=== PATIENT | female | born 1995 | race Caucasian/White ===

== ENCOUNTER 2016-11-21 02:50 | Inpatient (IN) | payer OTHER ==
[2016-11-21] MEDS: ELECTROLYTE-148 SOLN 1,000 ML IV SCH ×2 (08:45→10:15)
--- NOTE | 2016-11-21 09:16 | HP ---
Admitting History and Physical - Admission Chief Complaint: labor pains History of Present Illness: 21 y/o at term comes with labor pains. She was here in the night and sent home. She returns with contractions. and now 4-5 cm. History Source: Patient Limitations to Obtaining History: No Limitations - Past Medical History PRISM INSPECTOR: No: Alzheimer's, CVA, Dementia, Migraine, Multiple Sclerosis, Peripheral Neuropathy, Parkinson's, Seizure, Syncope, TIA, Vertigo, Other Cardiovascular: No: AFIB, Aneurysm, Aortic Insufficiency, Aortic Stenosis, CAD, CHF, Deep Vein Thrombosis, HTN, Hyperlipdemia, [place], Mitral Insufficiency, Mitral Stenosis, Murmur, Pulmonary Hypertension, Other Pulmonary: No: Asthma, Bronchitis, Cancer, COPD, O2 Dependent, Pneumonia, Previously Intubated, Pulmonary Embolus, Pulmonary Fibrosis, Sleep Apnea, Other Gastrointestinal: No: Ascites, Cancer, Constipation, Crohn's Disease, Diverticulitis, Diverticulosis, Esophageal Varices, Gastritis, GERD, GI Bleed, Hemorrhoids, Hiatal Hernia, Inflamatory Bowel Disease, Irritable Bowel Disease, Pancreatitis, Peptic Ulcer Disease, Ulcerative Colitis, Other Hepatobiliary: No: Cirrhosis, Cholelithiasis, Cholecystitis, Choledocholithiasis , Hepatitis A, Hepatitis B, Hepatitis C, Other Renal/: No: Renal Failure, Renal Inusuff, BPH, Cancer, Hematuria, Hemodialysis , Neurogenic Bladder, Renal Calculi, UTI, Other ...LMP: 11/18/15 ...: 3 ...Para: 1 Heme/Onc: Yes: Anemia. No: B12 Deficiency, Bleeding Disorder, Cancer, Current Chemotherapy, Current Radiation Therapy, Hemochromatosis, Hypercoaguable State, Myeloproliferative Synd, Sickle Cell Disease, Sickle Cell Trait, Thrombocytopenia, Other Infectious Disease: No: AIDS, C-Diff, Herpes Zoster, HIV, MRSA, STD's, Tuberculosis, VREF, Other Psych: No: Addictions, Anxiety, Bipolar, Depression, Panic, Psychosis, Schizophrenia, Other Musculoskeletal: No: Bursitis, Chronic low back pain, Hemiparesis, Hemiplegia, Osteoarthritis, Paraplegia, Other Rheumatology: No: Fibromyalgia, Gout, Lupus, Rheumatoid Arthritis, Sarcoidosis, Vasculitis, Other ENT: No: Allergic Rhinitis, Sinusitis, Other Endocrine: No: Rapides's Disease, [place]'s Disease, Diabetes Insipidus, Diabetes Mellitus, Hyperparathyroidism, Hyperthyroidism, Hypothyroidism, Osteopenia, SIADH, Other - Past Surgical History Past Surgical History: No: None, AAA Repair, AICD, Amputation, Appendectomy, Arthrosocopy, AV Fistula/Graft, Bariatric Surgery, Breast Biopsy, Bypass, CABG, Carotid Endarterectomy, Cataract Removal, Cholecystectomy, Colectomy, Colonoscopy, Colostomy, Craniotomy, , Cystectomy, Hernia Repair, Hysterectomy, Ileal Conduit, Ileosotomy, Joint Replacement, Kidney Transplant, Laminectomy, Liver Transplant, Mastectomy, Nephrectomy, Oopherectomy, Orchiectomy, Permanent Pacemaker, Prostatectomy, Splenectomy, Stent, Thoracotomy , TURP, Tonsillectomy, Tubal Ligation, Upper Endoscopy, Valve Replacement, Vasectomy, Vein Stripping/Ligation - Advance Directives Advance Directives: No: Living Will, Health Care Proxy, DNR, Organ Donor, Tissue Donor, MOLST - Smoking History Smoking history: Never smoked Have you smoked in the past 12 months: No - Alcohol/Substance Use Hx Alcohol Use: No History of Substance Use: reports: None. denies: Cocaine, Heroin, Marijuana, Prescription, Tranquilizers - Social History Usual Living Arrangement: No: Alone, With Spouse, With Parent, With Significant Other, With Child, Assisted Living, Fpc, Other History of Recent Travel: No Home Medications - Allergies Allergies/Adverse Reactions: Allergies Allergy/AdvReac Type Severity Reaction Status Date / Time No Known Allergies Allergy Verified 11/21/16 03:27 - Home Medications Home Medications: Ambulatory Orders Vitamins (Sjr) - 1 tab PO DAILY 05/16/14 Review of Systems - Review of Systems Constitutional: reports: No Symptoms Eyes: reports: No Symptoms HENT: reports: No Symptoms Neck: reports: No Symptoms Cardiovascular: reports: No Symptoms Respiratory: reports: No Symptoms Gastrointestinal: reports: No Symptoms Genitourinary: reports: No Symptoms Breasts: reports: No Symptoms Reported Musculoskeletal: reports: No Symptoms Integumentary: reports: No Symptoms Neurological: reports: No Symptoms Endocrine: reports: No Symptoms Hematology/Lymphatic: reports: No Symptoms Psychiatric: reports: No Symptoms Physical Examination Vital Signs: Vital Signs Temperature 98.9 F 11/21/16 03:28 Pulse Rate 86 11/21/16 03:28 Respiratory Rate 18 11/21/16 03:28 Blood Pressure 116/73 11/21/16 03:28 O2 Sat by Pulse Oximetry (%) Constitutional: Yes: Well Nourished Eyes: Yes: WNL HENT: Yes: WNL Neck: Yes: WNL Cardiovascular: Yes: WNL Respiratory: Yes: WNL Gastrointestinal: Yes: WNL ...Rectal Exam: Yes: WNL Renal/: Yes: WNL Musculoskeletal: Yes: WNL Extremities: Yes: WNL Neurological: Yes: WNL ...Motor Strength: WNL Assessment/Plan as above: admit labs desires epidural consider pitocin
[2016-11-21 09:29] VITALS: BMI 32.4
[2016-11-21] MEDS ORDERED: OXYTOCIN 15 UNITS/ LR 250 ML 250 ML IVPB SCH (09:30)
[2016-11-21] MEDS ORDERED: DEXTROSE 5%-LACTATED RINGERS 1,000 ML IV SCH (09:30)
[2016-11-21] MEDS: FENTANYL/BUPIVACAINE/NS/PF - PCEA - 50 ML DISP.SYRIN EP SCH ×2 (09:45→14:15)
[2016-11-21 10:20] LABS: BASOPHIL 0.2 % (0-2.0); EOSINOPHIL 0.1 % (0-4.5); MCH 27.5 pg (25.7-33.7); MCHC 32.6 g/dl (32.0-36.0); MEAN CELL VOLUME 84.5 fl (80-96); MEAN PLT VOLUME 9.8 fl (7.5-11.1); NEUTROPHILS 75.8 % (42.8-82.8); PLATELET COUNT 151 K/MM3 (134-434); RDW 16.5 % (11.6-15.6); WHITE BLOOD COUNT 8.7 K/mm3 (4.0-10.0)
[2016-11-21 10:41] LABS: ANION GAP 13 (8-16); CO2 20 mmol/L (21-32); CREATININE 0.6 mg/dL (0.55-1.02); GLUCOSE,RANDOM 77 mg/dL (74-106)
--- NOTE | 2016-11-21 10:45 | PN ---
Progress Note (short form) - Note Progress Note: cat 1 arom clear 5cm/-2/80 on pitocin
[2016-11-21 10:51] LABS: INR 0.94 (0.82-1.09); PROTHROMBIN TIME (PATIENT) 10.6 SEC (9.98-11.88)
[2016-11-21 10:54] LABS: ACTIVATED PTT 26.9 SECONDS (26.9-34.4)
--- NOTE | 2016-11-21 15:03 | PN ---
Progress Note (short form) - Note Progress Note: pt now fully dilated cat one will start to push
[2016-11-21] MEDS: OXYTOCIN 20 UNITS in 0.9% NS 1,000 ML IV SCH (15:35)
[2016-11-21] MEDS ORDERED: BENZOCAINE 20% 57 GM BOTTLE TP PRN (15:37)
[2016-11-21] MEDS ORDERED: WITCH HAZEL 50% (TUCKS) 40 PAD/JAR PAD TP PRN (15:37)
[2016-11-21] MEDS ORDERED: BISACODYL 10 MG SUPP.RECT RC PRN (15:37)
[2016-11-21] MEDS ORDERED: ACETAMINOPHEN 325 MG TABLET (FP) PO PRN (15:37)
[2016-11-21] MEDS ORDERED: METHYLERGONOVINE MALEATE 0.2 MG/1 ML AMP IM PRN (15:37)
[2016-11-21] MEDS ORDERED: IBUPROFEN 600 MG TABLET (FP) PO PRN (15:37)
[2016-11-21] MEDS ORDERED: BENZOCAINE 28 GM HEMORRHOIDAL OINTMENT TP PRN (15:37)
--- NOTE | 2016-11-21 15:39 | PN ---
Delivery - Delivery Type of Anesthesia: Epidural Episiotomy/Laceration: None EBL (cc): 400 Delivery, Single - Feeding Plan Initial Plan: Elected not to breastfeed exclusively throughout hospitalization
[2016-11-22 08:34] LABS: BASOPHIL 0.2 % (0-2.0); EOSINOPHIL 0.4 % (0-4.5); MCH 27.7 pg (25.7-33.7); MCHC 32.4 g/dl (32.0-36.0); MEAN CELL VOLUME 85.4 fl (80-96); MEAN PLT VOLUME 9.5 fl (7.5-11.1); NEUTROPHILS 72.6 % (42.8-82.8); PLATELET COUNT 124 K/MM3 (134-434); RDW 17.1 % (11.6-15.6); WHITE BLOOD COUNT 11.2 K/mm3 (4.0-10.0)
[2016-11-22] MEDS ORDERED: DIPHTH,PERTUSS(ACELL),TET 0.5 ML DISP.SYRIN IM ONE (10:00)
[2016-11-22] MEDS ORDERED: FLU VACC QS2017-18 36MOS UP/PF 60 MCG/0.5 ML SYRINGE IM ONE (10:00)
--- NOTE | 2016-11-22 11:23 | PN ---
Post Progress Note Post Day: 1 Type of Delivery: Vital Signs: Vital Signs Temperature 98.0 F 11/22/16 04:40 Pulse Rate 20 L 11/22/16 04:40 Respiratory Rate 125 H 11/22/16 04:40 Blood Pressure 112/71 11/22/16 00:58 O2 Sat by Pulse Oximetry (%) 100 11/21/16 16:45 Breast Exam: Yes: Soft Uterus: Yes: Fundus Firm Abdomen/GI: Yes: Abdomen soft Lochia: Yes: Rubra Lochia, amount: Small Extremities: Yes: Calves non-tender Perineum: Yes: Intact - Labs Labs: CBC WBC 11.2 K/mm3 (4.0-10.0) H 11/22/16 07:20 RBC 3.88 M/mm3 (3.60-5.2) 11/22/16 07:20 Hgb 10.7 GM/dL (10.7-15.3) 11/22/16 07:20 Hct 33.1 % (32.4-45.2) 11/22/16 07:20 MCV 85.4 fl (80-96) 11/22/16 07:20 MCH 27.7 pg (25.7-33.7) 11/22/16 07:20 MCHC 32.4 g/dl (32.0-36.0) 11/22/16 07:20 RDW 17.1 % (11.6-15.6) H 11/22/16 07:20 Plt Count 124 K/MM3 (134-434) L 11/22/16 07:20 MPV 9.5 fl (7.5-11.1) 11/22/16 07:20 Neutrophils % 72.6 % (42.8-82.8) 11/22/16 07:20 Lymphocytes % 20.0 % (8-40) 11/22/16 07:20 Monocytes % 6.8 % (3.8-10.2) 11/22/16 07:20 Eosinophils % 0.4 % (0-4.5) D 11/22/16 07:20 Basophils % 0.2 % (0-2.0) 11/22/16 07:20 Assessment/Plan doing well no issues will dc tomorrow
[2016-11-22] MEDS: OXYTOCIN 20 UNITS in 0.9% NS 1,000 ML IV SCH (18:20)
[2016-11-22] MEDS ORDERED: SENNOSIDES/DOCUSATE COMBO (SENNA PLUS) TABLET (UD) PO PRN (22:00)
--- NOTE | 2016-11-23 06:22 | DS ---
Physical Exam-LOAN EXAMINER Vital Signs: Vital Signs Temperature 98.1 F 11/22/16 21:35 Pulse Rate 76 11/22/16 21:35 Respiratory Rate 18 11/22/16 21:35 Blood Pressure 112/68 11/22/16 21:35 O2 Sat by Pulse Oximetry (%) 100 11/21/16 16:45 Constitutional: Yes: Well Nourished Eyes: Yes: Conjunctiva Clear HENT: Yes: Atraumatic Neck: Yes: Supple, Trachea Midline Cardiovascular: Yes: Regular Rate and Rhythm Respiratory: Yes: Regular, CTA Bilaterally Gastrointestinal: Yes: Normal Bowel Sounds External Genitalia: Yes: Normal Cervix: Yes: Normal Uterus: Yes: Firm ....Post : Yes: Uterus firm, Moderate lochia serosa Breast(s): Yes: WNL Musculoskeletal: Yes: WNL Extremities: Yes: WNL Neurological: Yes: Alert, Oriented ...Motor Strength: WNL Psychiatric: Yes: Alert, Oriented Labs: CBC, BMP 11/22/16 07:20 11/21/16 09:45 Delivery - Delivery Type of Anesthesia: Epidural Episiotomy/Laceration: 1st degree EBL (cc): 400 Delivery, Single - Stages of Labor Date 1st Stage Initiatied: 11/21/16 Time 1st Stage Initiated: 06:00 Date 2nd Stage Initiated: 11/21/16 Time 2nd Stage Initiated: 15:00 Date of Delivery: 11/21/16 Time of Delivery: 15:25 Time Placenta Delivered: 15:30 - Condition of Invoice Control Clerk/Bakery Assistant Present: No Gender: Male Weight: 7 lb 8 oz Total Hours ROM (Hrs/Mins): 4/50 - 1 Minute Total Score: 8 5 Minutes Total Score: 9 - Feeding Plan Initial Plan: Elected not to breastfeed exclusively throughout hospitalization Discharge Summary Reason For Visit: LABOR Current Active Problems Status post normal vaginal delivery (Acute) Procedures: Principal: Normal spontaneous vaginal delivery Hospital Course: Routine care Condition: Good - Instructions Diet, Activity, Other Instructions: Regular diet No douching, no sexual intercourse x 6 weeks F/U with MD in 6 weeks Referrals: Robin Mccall MD [Staff Physician] - Disposition: HOME - Home Medications Comprehensive Discharge Medication List: Ambulatory Orders Vitamins (Sjr) - 1 tab PO DAILY 05/16/14 Ibuprofen [Motrin -] 600 mg PO TID #21 tablet 11/21/16
[2016-11-23 09:50] VITALS: BP 114/62; PULSE 86; TEMP 98
== END 2016-11-23 12:00 | disposition home or self-care (01) | DRG 560 ==
LOC: JDEL 02:50 → UNDOADMIN 08:30 → JLDR 08:30 → J3W 17:00
PROVIDERS: ADMIT Obstetrics & Gynecology; ATTEND Obstetrics & Gynecology
PROC: 10E0XZZ Delivery of Products of Conception, External Approach (ICD-10-PCS; principal; 2016-11-21)
PROC: 0W8NXZZ Division of Female Perineum, External Approach (ICD-10-PCS; 2016-11-21)
PROC: 0HQ9XZZ Repair Perineum Skin, External Approach (ICD-10-PCS; 2016-11-21)
DX: O70.0 First degree perineal laceration during delivery (principal); Z3A.39 39 weeks gestation of pregnancy; Z37.0 Single live birth
CPT/HCPCS: 36415; 59025; 59409; 80048; 85025; 85610; 85730; 86593; 86850; 86900; 86901; 90686; 90715; G0008

== ENCOUNTER 2019-11-21 08:10 | Inpatient (IN) | payer OTHER ==
[2019-11-21 08:25] VITALS: BMI 27.7
[2019-11-21] MEDS ORDERED: KETOROLAC TROMETHAMINE 30 MG/1 ML VIAL IVPUSH ONE (08:44)
[2019-11-21] MEDS ORDERED: ONDANSETRON 4 MG/2 ML VIAL IVPUSH ONE (08:44)
--- NOTE | 2019-11-21 08:48 | PDOC ---
History of Present Illness - General Chief Complaint: Pain Stated Complaint: RT SIDE ABD PAIN Time Seen by Provider: 11/21/19 08:38 History Source: Patient - History of Present Illness Timing/Duration: reports: intermittent Quality: reports: moderate Past History - Medical History Allergies/Adverse Reactions: Allergies Allergy/AdvReac Type Severity Reaction Status Date / Time No Known Allergies Allergy Verified 11/21/19 08:25 Home Medications: Ambulatory Orders Acetaminophen [Tylenol] 650 mg PO Q6H #30 tablet 11/21/19 Cefpodoxime Proxetil [Vantin -] 200 mg PO Q12H #20 tablet 11/21/19 Asthma: No Cancer: No Cardiac Disorders: No COPD: No Diabetes: No HTN: No Seizures: No Thyroid Disease: No - Surgical History Appendectomy: Yes - Reproductive History Is Patient Now?: Yes (19.5) - Immunization History Immunization Up to Date: Yes - Psycho-Social/Smoking History Smoking History: Never smoked Have you smoked in the past 12 months: No Information on smoking cessation initiated: No - Substance Abuse Hx (Audit-C & DAST Scrn) How often the patient has a drink containing alcohol: Never Score: In Men: 4 or > Positive; In Women: 3 or > Positive: 0 Screen Result (Pos requires Nsg. Audit-10AR): Negative In the last yr the pt used illegal drug/Rx for NonMed reason: No Score: Yes response is considered Positive: 0 Screen Result (Positive result requires Nsg. DAST-10): Negative Review of Systems - Review of Systems Constitutional: No: Chills, Fever ABD/GI: Yes: Nausea, Vomiting, Abdominal cramping. No: Blood Streaked Bowels, Constipated, Diarrhea, Rectal Bleeding, Tarry Stools : Yes: Flank Pain. No: Burning, Dysuria, Discharge, Hematuria *Physical Exam - Vital Signs Last Vital Signs Temp Pulse Resp BP Pulse Ox 99.0 F 86 17 92/48 L 100 11/21/19 08:22 11/21/19 08:22 11/21/19 08:22 11/21/19 08:22 11/21/19 08:22 - Physical Exam General Appearance: Yes: Appropriately Dressed, Mild Distress HEENT: positive: Normal Voice Neck: positive: Supple Respiratory/Chest: negative: Respiratory Distress Gastrointestinal/Abdominal: positive: Normal Bowel Sounds, Tender (sig ttp to RUQ, neg murpheys, no ttp to lower abd), Soft. negative: Distended, Guarding, Rebound Musculoskeletal: positive: CVA Tenderness (R) Integumentary: positive: Dry, Warm Neurologic: positive: Fully Oriented, Alert, Normal Mood/Affect ED Treatment Course - LABORATORY CBC & Chemistry Diagram: 11/21/19 09:15 11/21/19 09:15 - RADIOLOGY Radiology Studies Ordered: Category Date Time Status ABDOMEN US -LIMITED [US] Stat Ultrasound 11/21/19 08:44 Ordered Medical Decision Making - Medical Decision Making 11/21/19 08:44 24-year-old female, , ~19 weeks , w/ no issues w/ preg so far, here w/ RUQ/flank pain for 1 week, sharp and crampy in nature, intermittent and last for hours each time. + nausea and vomiting intermittently. No lower abd pain, vag bleed, dysuria, hematuria, fever, chills or change in bowel movements. No known history of gallstones or kidney stones. see exam Upper abd pain in 2nd trimester preg No issues w/ preg so far Possible gastritis/GERD vs biliary vs uti/pyelo, less likely appy -pain control -labs -US 11/21/19 09:42 11/21/19 11:11 Of note, pt did not mention to me that she was prior to administration of toradol 11/21/19 11:52 Over 1999 bacteria on UA, ucx sent. No leukocytosis. Ultrasound read as "somewhat thickened" gallbladder wall with no stones, ductal dilatation or evidence of acute juve per radiology. Given presentation, will treat for possible pyelo. 1 dose ceftriaxone given in ED. Will discuss disposition 11/21/19 14:[address] Santana and patient admitted to MD's service for pyelo-. Per MD, patient is actually over 20 weeks Discharge - Discharge Information Problems reviewed: Yes Clinical Impression/Diagnosis: Pyelonephritis affecting Qualifiers: Trimester: second trimester Qualified Code(s): O23.02 - Infections of kidney in , second trimester Condition: Improved - Admission Yes - Additional Discharge Information Prescriptions: Acetaminophen [Tylenol] 650 mg PO Q6H #30 tablet Cefpodoxime Proxetil [Vantin -] 200 mg PO Q12H #20 tablet - Follow up/Referral - Patient Discharge Instructions Additional Instructions: Your urine showed many bacteria and you were treated with Macrobid. Take as directed Your ultrasound showed mildly thickened gallbladder wall but no evidence of acute gallbladder infection. Take Tylenol as needed and continue follow-up with your OB - Post Discharge Activity
[2019-11-21] MEDS ORDERED: KETOROLAC TROMETHAMINE 30 MG/1 ML VIAL ONE (09:17)
--- OUTSIDE RECORDS SUMMARY | 2019-11-21 09:39 | XMS ---
:1995 Author Organization [facility] Support Name Relationship Address Phone UE Unavailable Unavailable Unavailable JUDE QUIGLEY PARTNER [address] [place] [address] Re-disclosure Warning The records that you are about to access may contain information from federally- assisted alcohol or drug abuse programs. If such information is present, then the following federally mandated warning applies: This information has been disclosed to you from records protected by federal confidentiality rules (42 CFR part 2). The federal rules prohibit you from making any further disclosure of this information unless further disclosure is expressly permitted by the written consent of the person to whom it pertains or as otherwise permitted by 42 CFR part 2. A general authorization for the release of medical or other information is NOT sufficient for this purpose. The Federal rules restrict any use of the information to criminally investigate or prosecute any alcohol or drug abuse patient.The records that you are about to access may contain highly sensitive health information, the redisclosure of which is protected by Article 27-F of the [facility] Public Health law. If you continue you may haveaccess to information: Regarding HIV / AIDS; Provided by facilities licensed or operated by the [facility] Office of Mental Health; or Provided by the [facility] Office for People With Developmental Disabilities. If such information is present, then the following [facility] mandated warning applies: This information has been disclosed to you from confidential records which are protected by state law. State law prohibits you from making any further disclosure of this information without the specific written consent of the person to whom it pertains, or as otherwise permitted by law. Any unauthorized further disclosure in violation of state law may result in a fine or mcc sentence or both. A general authorization for the release of medical or other information is NOT sufficient authorization for further disclosure. Insurance Providers Payer name Policy type Policy ID Covered Covered constitution party's Policy P kushal / Coverage constitution party ID relationship to Lindsay Inf ormation type lindsay [place] [id number] O
[2019-11-21 09:45] LABS: BASO % 0.6 % (0-2.0); EOS % 0.6 % (0-4.5); HEMOGLOBIN 11.9 GM/dL (10.7-15.3); LYMPH % 16.2 % (8-40); MCH 28.8 pg (25.7-33.7); MEAN CELL VOLUME 84.7 fl (80-96); MEAN PLT VOLUME 8.5 fl (7.5-11.1); MONO % 5.4 % (3.8-10.2); NEUT % 77.2 % (42.8-82.8); PLATELET COUNT 268 K/MM3 (134-434); RBC 4.13 M/mm3 (3.60-5.2); RDW 13.7 % (11.6-15.6); WHITE BLOOD COUNT 9.3 K/mm3 (4.0-10.0)
[2019-11-21 10:17] LABS: ALBUMIN 2.9 g/dl (3.4-5.0); BILIRUBIN,TOTAL 0.2 mg/dL (0.2-1); BLOOD UREA NITROGEN 7.4 mg/dL (7-18); CALCIUM 8.6 mg/dL (8.5-10.1); CREATININE 0.5 mg/dL (0.55-1.3); TOT PROT 6.7 g/dl (6.4-8.2)
[2019-11-21 11:19] LABS: HCG,QUALITATIVE URINE Positive
[2019-11-21 11:22] LABS: EPI CELLS >36 /uL (0-25.1); HYALINE CASTS 25 /uL (0-3.1); URINE APPEARANCE CLOUDY; URINE BACTERIA 2527 /uL (0-1359); URINE BILIRUBIN 1+ (NEGATIVE); URINE COLOR DK YELLOW; URINE GLUCOSE (UA) NEGATIVE (NEGATIVE); URINE KETONE TRACE (NEGATIVE); URINE LEUK ESTERASE TRACE (NEGATIVE); URINE NITRITE NEGATIVE (NEGATIVE); URINE PROTEIN 2+ (NEGATIVE); URINE WBC 60 /uL (0-25.8)
[2019-11-21 11:43] LABS: URINE RBC 23.1 /uL (0-23.9)
[2019-11-21] MEDS ORDERED: SODIUM CHLORIDE 1,000 ML IV STA (12:00)
[2019-11-21] MEDS ORDERED: CEFTRIAXONE 1 GM in DEXTROSE 5%-WATER - 50 ML IVPB ONE (12:00)
[2019-11-21] MEDS ORDERED: CEFTRIAXONE 1 GM/50 ML BAG ONE (12:32)
--- OUTSIDE RECORDS SUMMARY | 2019-11-21 14:12 | XMS ---
:1995 Author Organization [facility] Support Name Relationship Address Phone UE, UNEMPLOYED Unavailable Unavailable Unavailable UE Unavailable Unavailable Unavailable JUDE QUIGLEY PARTNER [address] [phone] [place] [address] Re-disclosure Warning The records that you are [...] is protected by Article 27-F of the [facility] Public Health law. If you continue you may haveaccess to information: Regarding HIV / AIDS; Provided by facilities licensed or operated by the [facility] Office of Mental Health; or Provided by the [facility] Office for People With Developmental Disabilities. If such information is present, then the following [facility] mandated warning applies: This information has been [...] law may result in a fine or longterm sentence or both. A general authorization for the release of medical or other information is NOT sufficient authorization for further disclosure. Insurance Providers Payer name Policy type Policy ID Covered Covered democrat's Policy P kushal / Coverage democrat ID relationship to Lindsay [employer] ormation type lindsay [employer] MEDICAID [id number] O
[2019-11-21] MEDS ORDERED: ACETAMINOPHEN 325 MG TABLET (FP) PO PRN (14:54)
[2019-11-21] MEDS ORDERED: ONDANSETRON 4 MG/2 ML VIAL IVPUSH PRN (15:00)
--- NOTE | 2019-11-21 16:48 | HP ---
Past Medical History - Admission Chief Complaint: R sided pain History of Present Illness: 24yo @ 21.2wks by LMP, MELINA 03/30/20 (19.3wks by today's Radiology scan) here with 7+ days of R sided pain. No fevers/chills. No dysuria. Seen at [facility] Urgent care last week for RUQ pain, normal exam. No labs done. No VB/LOF. No uterine cramping. +FM. Does PNC @ [facility] care, however, has not been compliant. One visit this in August 2019. Did not show for appt in September, nor October. Has f/u scheduled 11/27 History Source: Patient - Past Medical History SOUND ART INSTRUCTOR: No: Alzheimer's, CVA, Dementia, Migraine, Multiple Sclerosis, Peripheral Neuropathy, Parkinson's, Seizure, Syncope, TIA, Vertigo, Other Cardiovascular: No: AFIB, Aneurysm, Aortic Insufficiency, Aortic Stenosis, CAD, CHF, Deep Vein Thrombosis, HTN, Hyperlipdemia, [place], Mitral Insufficiency, Mitral Stenosis, Murmur, Pulmonary Hypertension, Other Pulmonary: No: Asthma, Bronchitis, Cancer, COPD, O2 Dependent, Pneumonia, Previously Intubated, Pulmonary Embolus, Pulmonary Fibrosis, Sleep Apnea, Other Gastrointestinal: No: Ascites, Cancer, Constipation, Crohn's Disease, Diverticulitis, Diverticulosis, Esophageal Varices, Gastritis, GERD, GI Bleed, Hemorrhoids, Hiatal Hernia, Inflamatory Bowel Disease, Irritable Bowel Disease, Pancreatitis, Peptic Ulcer Disease, Ulcerative Colitis, Other ...: 3 ...Para: 1 ...Term: 1 ...Spon : 1 ...Living Children: 1 ... Weeks Gestation by Dates: .2 ...EDC by Dates: 03/30/20 ...EDC by Sono: 04/10/20 Additional OB History: Noncompliant with PNC. Only one visit in August 2019 Heme/Onc: Yes: Anemia. No: B12 Deficiency, Bleeding Disorder, Cancer, Current Chemotherapy, Current Radiation Therapy, Hemochromatosis, Hypercoaguable State, Myeloproliferative Synd, Sickle Cell Disease, Sickle Cell Trait, Thrombocytopenia, Other - Past Surgical History Hx Myomectomy: No Hx Transabdominal Cerclage: No - Smoking History Smoking history: Never smoked Have you smoked in the past 12 months: No - Alcohol/Substance Use Hx Alcohol Use: No History of Substance Use: reports: None. denies: Cocaine, Heroin, Marijuana, Prescription, Tranquilizers - Social History History of Recent Travel: No Home Medications - Allergies Allergies/Adverse Reactions: Allergies Allergy/AdvReac Type Severity Reaction Status Date / Time No Known Allergies Allergy Verified 11/21/19 08:25 - Home Medications Home Medications: Ambulatory Orders Acetaminophen [Tylenol] 650 mg PO Q6H #30 tablet 11/21/19 Cefpodoxime Proxetil [Vantin -] 200 mg PO Q12H #20 tablet 11/21/19 Nitrofurantoin Monohyd/M-Cryst [Macrobid -] 100 mg PO BID 14 Days #28 capsule 11/21/19 Review of Systems - Review of Systems Constitutional: reports: No Symptoms Eyes: reports: No Symptoms HENT: reports: No Symptoms Neck: reports: No Symptoms Cardiovascular: reports: No Symptoms Respiratory: reports: No Symptoms Gastrointestinal: reports: Nausea Musculoskeletal: reports: Back Pain Physical Exam - Maternity Vital Signs: Vital Signs Temperature 99.0 F 11/21/19 08:22 Pulse Rate 86 11/21/19 08:22 Respiratory Rate 17 11/21/19 08:22 Blood Pressure 92/48 L 11/21/19 08:22 O2 Sat by Pulse Oximetry (%) 100 11/21/19 08:22 Constitutional: Yes: Well Nourished, No Distress, Calm - Abdominal Exam/OB Number of Fetuses: Single - Vaginal Exam/OB Vaginal Bleeding: No Speculum Exam: No Amniotic Membrane Status: Intact - Physical Exam Extremities: Yes: Internal Rotation - Labs Lab Results: CBC, BMP 11/21/19 09:15 11/21/19 09:15 Imaging - Results Ultrasound: Report Reviewed Problem List - Problems (1) Pyelonephritis affecting Code(s): O23.00 - INFECTIONS OF KIDNEY IN , UNSPECIFIED TRIMESTER Qualifiers: Trimester: second trimester Qualified Code(s): O23.02 - Infections of kid arnie in , second trimester Assessment/Plan 24yo @ 21.2wks here with pyelonephritis. Received Rocephin x 1 in ER; will give additional dose tomorrow Admit for IV antibiotics, transition to Macrobid BID x 14 day course tomorrow Repeat CBC in AM, no leukocytosis Had sonogram done, normal; dop tones tomorrow Urine culture sent in ER PNV, Tylenol prn Continue to monitor. Parul Santana MD
[2019-11-21] MEDS ORDERED: PRENATAL VITAMINS W/ FOLIC ACID TABLET (FP) PO SCH (19:00)
[2019-11-22] MEDS ORDERED: ACETAMINOPHEN 325 MG TABLET (FP) ONE (00:59)
[2019-11-22 07:36] LABS: BASO % 0.3 % (0-2.0); EOS % 1.6 % (0-4.5); HEMOGLOBIN 10.5 GM/dL (10.7-15.3); LYMPH % 30.5 % (8-40); MCH 27.7 pg (25.7-33.7); MCHC 32.9 g/dl (32.0-36.0); MEAN CELL VOLUME 84.2 fl (80-96); MEAN PLT VOLUME 8.6 fl (7.5-11.1); MONO % 6.9 % (3.8-10.2); NEUT % 60.7 % (42.8-82.8); PLATELET COUNT 247 K/MM3 (134-434); RDW 13.8 % (11.6-15.6); WHITE BLOOD COUNT 7.6 K/mm3 (4.0-10.0)
--- NOTE | 2019-11-22 08:20 | PN ---
Progress Note, Physician Chief Complaint: No issues overnight. Pain improving. No fevers/chills. No VB. +FM - Current Medication List Current Medications: Active Medications Acetaminophen (Tylenol -) 650 mg PO Q4H PRN PRN Reason: PAIN Last Admin: 11/22/19 01:15 Dose: 650 mg Documented by: Ceftriaxone Sodium 1 gm/ (Dextrose) 50 mls @ 100 mls/hr IVPB ONCE ONE Stop: 11/22/19 09:29 Ondansetron HCl (Zofran Injection) 4 mg IVPUSH Q6H PRN PRN Reason: NAUSEA Multivit/Folic Acid/Iron ( Vitamins (Sjr) -) 1 tab PO DAILY CHINTAN Last Admin: 11/21/19 19:46 Dose: 1 tab Documented by: - Objective Vital Signs: Vital Signs Temperature 97.9 F 11/22/19 04:45 Pulse Rate 84 11/22/19 04:45 Respiratory Rate 16 11/22/19 04:45 Blood Pressure 100/54 L 11/22/19 04:45 O2 Sat by Pulse Oximetry (%) 100 11/22/19 04:45 Constitutional: No: Well Nourished, No Distress, Calm, Anxious, Ashen, Cachectic, Diaphoresis, Mild Distress, Moderate Distress, Severe Distress, Obese, Pallor, Poor Hygeine, Thin, Other Gastrointestinal: Yes: WNL, Normal Bowel Sounds, Soft (Gravid) Edema: No Labs: CBC, BMP 11/22/19 05:25 11/21/19 09:15 - ....Imaging Ultrasound: Report Reviewed Problem List - Problems (1) Pyelonephritis affecting Code(s): O23.00 - INFECTIONS OF KIDNEY IN , UNSPECIFIED TRIMESTER Qualifiers: Trimester: second trimester Qualified Code(s): O23.02 - Infections of kidney in , second trimester Assessment/Plan 24yo @ 21.3wks here with pyelonephritis. Received Rocephin x 1 in ER; will give additional dose today Admit for IV antibiotics, transition to Macrobid BID x 14 day course tomorrow Repeat CBC normal this AM. Had sonogram done, normal; dop tones today Urine culture sent in ER; pending. PNV, Tylenol prn Continue to monitor. D/C to home tomorrow Parul Santana MD
[2019-11-22] MEDS ORDERED: CEFTRIAXONE 1 GM/50 ML BAG ONE (08:37)
--- NOTE | 2019-11-22 08:40 | DS ---
Physical Examination Vital Signs: Vital Signs Temperature 97.9 F 11/22/19 04:45 Pulse Rate 84 11/22/19 04:45 Respiratory Rate 16 11/22/19 04:45 Blood Pressure 100/54 L 11/22/19 04:45 O2 Sat by Pulse Oximetry (%) 99 11/22/19 08:31 Labs: CBC, BMP 11/22/19 05:25 11/21/19 09:15 Discharge Summary Problems reviewed: Yes Reason For Visit: PYELONEPHRITIS AFFECTING Current Active Problems Pyelonephritis affecting (Acute) Condition: Stable - Instructions Diet, Activity, Other Instructions: Follow up with Dr. Santana as scheduled on 11/27 Referrals: Andra Santana MD [Staff Physician] - Disposition: HOME - Home Medications Comprehensive Discharge Medication List: Ambulatory Orders Acetaminophen [Tylenol] 650 mg PO Q6H #30 tablet 11/21/19 Cefpodoxime Proxetil [Vantin -] 200 mg PO Q12H #20 tablet 11/21/19 Nitrofurantoin Monohyd/M-Cryst [Macrobid -] 100 mg PO BID 14 Days #28 capsule 11/21/19
[2019-11-22 08:47] VITALS: BP 98/61; PULSE 75; TEMP 98.2
[2019-11-22] MEDS ORDERED: CEFTRIAXONE 1 GM in DEXTROSE 5%-WATER - 50 ML IVPB ONE (09:00)
== END 2019-11-22 09:11 | disposition home or self-care (01) | DRG 566 ==
LOC: JER 08:10 → JERBED 13:36
PROVIDERS: ADMIT Obstetrics & Gynecology; ATTEND Obstetrics & Gynecology
DX: O23.02 Infections of kidney in pregnancy, second trimester (principal); Z3A.21 21 weeks gestation of pregnancy
CPT/HCPCS: 36415; 76705-TC; 76815; 80053; 81003; 83690; 84703; 85025; 87086; 99285-25; C9803; U0003

== ENCOUNTER 2020-04-12 05:39 | Inpatient (IN) | payer OTHER ==
[2020-04-12] MEDS ORDERED: ELECTROLYTE-148 SOLN 1,000 ML IV SCH (06:15)
[2020-04-12] MEDS ORDERED: OXYTOCIN 30 UNITS in 0.9% NS 30 UNIT/500 ML INFUS.BAG IVPB SCH (06:15)
[2020-04-12 07:33] LABS: BASO % 0.3 % (0-2.0); EOS % 0.5 % (0-4.5); HEMATOCRIT 33.9 % (32.4-45.2); HEMOGLOBIN 11.2 GM/dL (10.7-15.3); LYMPH % 24.9 % (8-40); MCH 26.5 pg (25.7-33.7); MCHC 33.1 g/dl (32.0-36.0); MEAN CELL VOLUME 80.2 fl (80-96); MEAN PLT VOLUME 9.6 fl (7.5-11.1); NEUT % 66.3 % (42.8-82.8); PLATELET COUNT 162 K/MM3 (134-434); RBC 4.23 M/mm3 (3.60-5.2); RDW 20.7 % (11.6-15.6); WHITE BLOOD COUNT 7.9 K/mm3 (4.0-10.0)
[2020-04-12 07:38] VITALS: BMI 31.4
[2020-04-12 07:38] LABS: INR 0.91 (0.83-1.09); PROTHROMBIN TIME (PATIENT) 11.2 SEC (9.7-13.0)
[2020-04-12 07:41] LABS: ACTIVATED PTT 27.5 SECONDS (25.2-36.5)
[2020-04-12 07:45] LABS: POTASSIUM 3.9 mmol/L (3.5-5.1)
[2020-04-12 07:46] LABS: BLOOD UREA NITROGEN 16.6 mg/dL (7-18); CALCIUM 8.5 mg/dL (8.5-10.1)
[2020-04-12 07:50] LABS: CREATININE 0.7 mg/dL (0.55-1.3)
[2020-04-12] MEDS ORDERED: OXYTOCIN 30 UNITS in 0.9% NS 30 UNIT/500 ML INFUS.BAG IVPB ONE (07:56)
[2020-04-12 09:24] LABS: ANISOCYTOSIS 2+; MACROCYTOSIS 0; PLATELET ESTIMATE NORMAL
[2020-04-12] MEDS ORDERED: BUPIVACAINE HCL/PF 0.25% (2.5MG/ML) 10 ML VIAL ONE (09:26)
[2020-04-12] MEDS ORDERED: FENTANYL/BUPIVACAINE/NS/PF - PCEA - 50 ML DISP.SYRIN EP ONE (09:28)
[2020-04-12] MEDS ORDERED: NALOXONE HCL 0.4 MG/ML VIAL IVPUSH PRN (09:47)
[2020-04-12] MEDS ORDERED: FENTANYL/BUPIVACAINE/NS/PF - PCEA - 50 ML DISP.SYRIN EP SCH (10:00)
[2020-04-12] MEDS ORDERED: OXYTOCIN 20 UNITS in 0.9% NS 20 UNIT/1,000 ML INFUS.BAG IV ONE (11:53)
[2020-04-12] MEDS ORDERED: METHYLERGONOVINE MALEATE 0.2 MG/1 ML AMP IM PRN (12:53)
[2020-04-12] MEDS ORDERED: WITCH HAZEL 50% (TUCKS) 40 PAD/JAR PAD TP PRN (12:53)
[2020-04-12] MEDS ORDERED: BISACODYL 10 MG SUPP.RECT RC PRN (12:53)
[2020-04-12] MEDS ORDERED: BENZOCAINE 20% 57 GM BOTTLE TP PRN (12:53)
[2020-04-12] MEDS ORDERED: BENZOCAINE 28 GM HEMORRHOIDAL OINTMENT TP PRN (12:53)
[2020-04-12] MEDS ORDERED: OXYTOCIN 20 UNITS in 0.9% NS 20 UNIT/1,000 ML INFUS.BAG IV SCH (13:00)
[2020-04-12] MEDS: ACETAMINOPHEN 325 MG TABLET (FP) PO PRN (16:10)
[2020-04-12] MEDS: IBUPROFEN 600 MG TABLET (FP) PO PRN (16:11)
[2020-04-13] MEDS: IBUPROFEN 600 MG TABLET (FP) PO PRN (02:14)
[2020-04-13] MEDS: ACETAMINOPHEN 325 MG TABLET (FP) PO PRN (02:14)
[2020-04-13 08:26] LABS: BASO % 0.3 % (0-2.0); EOS % 0.8 % (0-4.5); HEMATOCRIT 29.1 % (32.4-45.2); HEMOGLOBIN 9.7 GM/dL (10.7-15.3); LYMPH % 29.8 % (8-40); MCHC 33.2 g/dl (32.0-36.0); MEAN CELL VOLUME 81.2 fl (80-96); MEAN PLT VOLUME 9.8 fl (7.5-11.1); MONO % 7.1 % (3.8-10.2); PLATELET COUNT 141 K/MM3 (134-434); RBC 3.58 M/mm3 (3.60-5.2); RDW 20.6 % (11.6-15.6); WHITE BLOOD COUNT 9.2 K/mm3 (4.0-10.0)
[2020-04-13] MEDS: PRENATAL VITAMINS W/ FOLIC ACID TABLET (FP) PO SCH (10:10)
[2020-04-13] MEDS ORDERED: SENNOSIDES/DOCUSATE COMBO (SENNA PLUS) TABLET (UD) PO PRN (22:00)
[2020-04-14] MEDS: ACETAMINOPHEN 325 MG TABLET (FP) PO PRN (09:15)
[2020-04-14] MEDS: IBUPROFEN 600 MG TABLET (FP) PO PRN (09:16)
[2020-04-14] MEDS: PRENATAL VITAMINS W/ FOLIC ACID TABLET (FP) PO SCH (09:16)
[2020-04-14 09:44] VITALS: BP 101/60; PULSE 90; TEMP 98
== END 2020-04-14 11:50 | disposition home or self-care (01) | DRG 560 ==
LOC: JLDR 05:39 → J3W 15:15
PROVIDERS: ADMIT Obstetrics & Gynecology; ATTEND Obstetrics & Gynecology
PROC: 10E0XZZ Delivery of Products of Conception, External Approach (ICD-10-PCS; principal; 2020-04-12)
PROC: 3E033VJ Introduction of Other Hormone into Peripheral Vein, Percutaneous Approach (ICD-10-PCS; 2020-04-12)
PROC: 10907ZC Drainage of Amniotic Fluid, Therapeutic from Products of Conception, Via Natural or Artificial Opening (ICD-10-PCS; 2020-04-12)
DX: O80 Encounter for full-term uncomplicated delivery (principal); Z3A.40 40 weeks gestation of pregnancy; Z37.0 Single live birth; Z90.49 Acquired absence of other specified parts of digestive tract
CPT/HCPCS: 36415; 59409; 80048; 85025; 85610; 85730; 86780; 86850; 86900; 86901

== ENCOUNTER 2021-01-29 15:41 | Emergency (ER) | payer OTHER ==
[2021-01-29 15:48] VITALS: BP 119/71; PULSE 101; TEMP 98.3; BMI 30.2
[2021-01-29] MEDS ORDERED: ONDANSETRON 4 MG/2 ML VIAL IVPUSH ONE ×2 (18:07→20:30)
[2021-01-29] MEDS ORDERED: SODIUM CHLORIDE 0.9% 500 ML INFUS.BAG IV ONE ×2 (18:07→20:30)
[2021-01-29] MEDS ORDERED: ONDANSETRON 4 MG/2 ML VIAL ONE ×2 (18:18→21:06)
[2021-01-29 18:43] LABS: BASO % 0.2 % (0-2.0); EOS % 0.1 % (0-4.5); HEMATOCRIT 40.6 % (32.4-45.2); HEMOGLOBIN 13.5 GM/dL (10.7-15.3); LYMPH % 36.2 % (8-40); MCH 27.1 pg (25.7-33.7); MCHC 33.4 g/dl (32.0-36.0); MEAN CELL VOLUME 81.1 fl (80-96); MEAN PLT VOLUME 7.9 fl (7.5-11.1); MONO % 7.1 % (3.8-10.2); NEUT % 56.4 % (42.8-82.8); PLATELET COUNT 200 10^3/uL (134-434); RDW 14.5 % (11.6-15.6); WHITE BLOOD COUNT 4.6 K/mm3 (4.0-10.0)
[2021-01-29 19:03] LABS: BLOOD UREA NITROGEN 8.7 mg/dL (7-18); CALCIUM 8.7 mg/dL (8.5-10.1)
[2021-01-29 19:04] LABS: ALBUMIN 3.6 g/dl (3.4-5.0)
[2021-01-29 19:07] LABS: CREATININE 0.5 mg/dL (0.55-1.3)
[2021-01-29 19:08] LABS: BILIRUBIN,TOTAL 0.3 mg/dL (0.2-1); TOT PROT 8.1 g/dl (6.4-8.2)
== END 2021-01-29 22:09 | disposition home or self-care (01) ==
LOC: JER 15:41
PROC: 3E033GC Introduction of Other Therapeutic Substance into Peripheral Vein, Percutaneous Approach (ICD-10-PCS; principal; 2021-01-29)
DX: O21.9 Vomiting of pregnancy, unspecified (principal); Z3A.08 8 weeks gestation of pregnancy
CPT/HCPCS: 36415; 80053; 85025; 87804; 99284-25; C9803; U0003; U0005

== ENCOUNTER 2021-08-07 01:00 | Inpatient (IN) | payer OTHER ==
[~2021-08-07 01:00] MED LIST: DEXTROSE 5%-LACTATED RINGERS 1,000 ML IV SCH
[2021-08-07] MEDS ORDERED: OXYTOCIN 20 UNITS in 0.9% NS 20 UNIT/1,000 ML INFUS.BAG IV ONE ×2 (01:42→02:44)
[2021-08-07 02:15] LABS: BASO % 0.4 % (0-2.0); HEMATOCRIT 35.5 % (32.4-45.2); HEMOGLOBIN 11.7 GM/dL (10.7-15.3); LYMPH % 16.5 % (8-40); MCH 27.1 pg (25.7-33.7); MCHC 32.9 g/dl (32.0-36.0); MEAN CELL VOLUME 82.4 fl (80-96); MEAN PLT VOLUME 9.3 fl (7.5-11.1); MONO % 6.1 % (3.8-10.2); PLATELET COUNT 259 10^3/uL (134-434); RBC 4.31 M/mm3 (3.60-5.2); RDW 16.1 % (11.6-15.6); WHITE BLOOD COUNT 13.8 K/mm3 (4.0-10.0)
[2021-08-07 02:24] LABS: INR 0.97 (0.83-1.09); PROTHROMBIN TIME (PATIENT) 11.1 SEC (9.7-13.0)
[2021-08-07 02:27] LABS: ACTIVATED PTT 28.1 SECONDS (25.2-36.5)
[2021-08-07] MEDS ORDERED: ELECTROLYTE-148 SOLN 1,000 ML IV SCH (02:30)
[2021-08-07 02:32] LABS: CALCIUM 8.4 mg/dL (8.5-10.1)
[2021-08-07 02:33] LABS: BLOOD UREA NITROGEN 8.4 mg/dL (7-18)
[2021-08-07 02:36] LABS: CREATININE 0.8 mg/dL (0.55-1.3)
[2021-08-07 02:39] VITALS: BMI 32.8
[2021-08-07] MEDS ORDERED: FENTANYL/BUPIVACAINE/NS/PF - PCEA - 50 ML DISP.SYRIN EP ONE (02:47)
[2021-08-07] MEDS ORDERED: NALOXONE HCL 0.4 MG/ML VIAL IVPUSH PRN (02:50)
[2021-08-07] MEDS ORDERED: BUPIVACAINE HCL/PF 0.25% (2.5MG/ML) 10 ML VIAL ONE (02:54)
[2021-08-07] MEDS ORDERED: FENTANYL/BUPIVACAINE/NS/PF - PCEA - 50 ML DISP.SYRIN EP SCH (03:00)
[2021-08-07] MEDS ORDERED: OXYTOCIN 20 UNITS in 0.9% NS 20 UNIT/1,000 ML INFUS.BAG IV SCH (07:15)
[2021-08-07] MEDS ORDERED: BENZOCAINE 20% 57 GM BOTTLE TP PRN (07:15)
[2021-08-07] MEDS ORDERED: BENZOCAINE 28 GM HEMORRHOIDAL OINTMENT TP PRN (07:15)
[2021-08-07] MEDS ORDERED: WITCH HAZEL 50% (TUCKS) 40 PAD/JAR PAD TP PRN (07:15)
[2021-08-07] MEDS ORDERED: ACETAMINOPHEN 325 MG TABLET (FP) PO PRN (07:15)
[2021-08-07] MEDS ORDERED: METHYLERGONOVINE MALEATE 0.2 MG/1 ML AMP IM PRN (07:15)
[2021-08-07] MEDS ORDERED: METHYLERGONOVINE MALEATE 0.2 MG/1 ML AMP IM ONE (07:15)
[2021-08-07] MEDS ORDERED: BISACODYL 10 MG SUPP.RECT RC PRN (07:15)
[2021-08-07] MEDS ORDERED: IBUPROFEN 600 MG TABLET (FP) PO ONE (07:35)
[2021-08-07] MEDS: IBUPROFEN 600 MG TABLET (FP) PO PRN (07:40)
[2021-08-07] MEDS ORDERED: ACETAMINOPHEN INJECTION 100 ML IVPB ONE (07:49)
[2021-08-07 08:28] LABS: CORD BASE EXCESS -4.4 mmol/L (0-2); CORD HCO3 20.9 mmHg (20-29); CORD PCO2 39.4 mmHg (30-78); CORD pH 7.343 (7.14-7.44)
[2021-08-07 08:31] LABS: CORD HCO3 21.4 mmHg (20-29); CORD PCO2 58.4 mmHg (30-78); CORD pH 7.181 (7.14-7.44)
[2021-08-07] MEDS ORDERED: ACETAMINOPHEN 1000 MG/100 ML BAG IVPB ONE (08:45)
[2021-08-07 13:01] LABS: POC NITRAZINE POS
[2021-08-08 07:25] LABS: BASO % 0.2 % (0-2.0); HEMATOCRIT 32.2 % (32.4-45.2); HEMOGLOBIN 10.4 GM/dL (10.7-15.3); LYMPH % 14.6 % (8-40); MCH 27.3 pg (25.7-33.7); MCHC 32.4 g/dl (32.0-36.0); MEAN CELL VOLUME 84.2 fl (80-96); MEAN PLT VOLUME 8.8 fl (7.5-11.1); MONO % 5.8 % (3.8-10.2); NEUT % 78.4 % (42.8-82.8); PLATELET COUNT 214 10^3/uL (134-434); RBC 3.82 M/mm3 (3.60-5.2); RDW 17.2 % (11.6-15.6); WHITE BLOOD COUNT 12.7 K/mm3 (4.0-10.0)
[2021-08-08] MEDS: IBUPROFEN 600 MG TABLET (FP) PO PRN (21:14)
[2021-08-08] MEDS ORDERED: SENNOSIDES/DOCUSATE COMBO (SENNA PLUS) TABLET (UD) PO PRN (22:00)
[2021-08-09] MEDS: IBUPROFEN 600 MG TABLET (FP) PO PRN (10:41)
[2021-08-09 10:48] VITALS: BP 114/65; PULSE 94; TEMP 98.4
== END 2021-08-09 14:15 | disposition home or self-care (01) | DRG 560 ==
LOC: JDEL 01:00 → JLDR 01:20 → J3W 09:25
PROVIDERS: ADMIT Obstetrics & Gynecology; ATTEND Obstetrics & Gynecology
PROC: 10E0XZZ Delivery of Products of Conception, External Approach (ICD-10-PCS; principal; 2021-08-07)
DX: O48.0 Post-term pregnancy (principal); O69.81X0 Labor and delivery complicated by cord around neck, without compression, not applicable or unspecified; Z3A.40 40 weeks gestation of pregnancy; Z37.0 Single live birth
CPT/HCPCS: 36415; 36600; 59409; 80048; 82803; 83986-QW; 85025; 85610; 85730; 86780; 86850; 86900; 86901; C9803-CS; U0003; U0005

== ENCOUNTER → 2021-11-06 | Day surgery (SDC) | payer OTHER ==
[2021-11-04 15:34] VITALS: BMI 28.9
[~2021-11-06] MED LIST changes: +ACETAMINOPHEN 325 MG TABLET (FP) PO PRN; +BUPIVACAINE HCL/PF 0.25% (2.5MG/ML) 10 ML VIAL ONE; +BUPIVACAINE HCL/PF 0.5% (5MG/ML) 10 ML VIAL IJ ONE; +BUPIVACAINE HCL/PF 0.5% (5MG/ML) 10 ML VIAL ONE; +DEXAMETHASONE SOD PHOSPHATE 4 MG/1 ML VIAL ONE; -DEXTROSE 5%-LACTATED RINGERS 1,000 ML IV SCH; +GLYCOPYRROLATE 0.2 MG/1 ML VIAL ONE; +KETOROLAC TROMETHAMINE 30 MG/1 ML VIAL ONE; +LACTATED RINGERS SOLUTION 1,000 ML IV SCH; +MEPERIDINE HCL 25 MG/ML VIAL IVPUSH ONE; +MEPERIDINE HCL 25 MG/ML VIAL ONE; +MEPERIDINE HCL CARPU-JECT 25 MG/1 ML DISP.SYRIN IVPUSH ONE; +MIDAZOLAM HCL 2 MG/2 ML SINGLE DOSE VIAL IVPB ONE; +MIDAZOLAM HCL 2 MG/2 ML SINGLE DOSE VIAL IVPUSH ONE; +MIDAZOLAM HCL 2 MG/2 ML SINGLE DOSE VIAL ONE; +NEOSTIGMINE METHYLSULFATE 0.5 MG/ML - 10 ML MDV ONE; +ONDANSETRON 4 MG/2 ML VIAL IVPUSH PRN; +ONDANSETRON 4 MG/2 ML VIAL ONE; +PROPOFOL 20 ML ONE; +oxyCODONE HCL 5 MG TABLET PO PRN
[2021-11-06 18:34] VITALS: BP 103/54; PULSE 75; RESP 20; TEMP 97.8
== END | disposition home or self-care (01) ==
LOC: JASU-SURG 04:29
PROVIDERS: ATTEND Obstetrics & Gynecology
PROC: 0UT74ZZ Resection of Bilateral Fallopian Tubes, Percutaneous Endoscopic Approach (ICD-10-PCS; principal; 2021-11-06 13:00)
DX: Z30.2 Encounter for sterilization (principal)
CPT/HCPCS: 88305-TC; 94760

== ENCOUNTER 2022-05-31 14:58 | Emergency (ER) | payer OTHER ==
[2022-05-31 15:14] VITALS: BP 110/69; PULSE 81; RESP 19; TEMP 98.4; BMI 22.6
[2022-05-31] MEDS ORDERED: ACETAMINOPHEN 500 MG TABLET (FP) PO ONE (16:21)
[2022-05-31] MEDS ORDERED: IBUPROFEN 400 MG TABLET (FP) PO ONE ×2 (16:21→16:24)
[2022-05-31] MEDS ORDERED: ACETAMINOPHEN 500 MG TABLET (FP) ONE (16:24)
== END 2022-05-31 17:44 | disposition home or self-care (01) ==
LOC: JERFT 14:58 → JER 14:58 → JERFT 17:44
DX: M54.9 Dorsalgia, unspecified (principal); M54.2 Cervicalgia; V89.2XXA Person injured in unspecified motor-vehicle accident, traffic, initial encounter
CPT/HCPCS: 99282-25